=== PATIENT | male | born 1985 | race Caucasian/White ===

== ENCOUNTER 2017-02-02 01:19 | Emergency (ER) | payer BC, OTHER ==
[~2017-02-02] VITALS: Ht 182.9 cm; Wt 79.4 kg
[~2017-02-02 01:19] MED LIST: BUPR1TAB SL
--- NOTE | 2017-02-02 01:30 | NUR ---
tissue adhesive applied by Dr Velez, dressing intact, clean without bleeding.
[2017-02-02] MEDS ORDERED: ACETAMINOPHEN 325 MG TABLET ONE (01:31)
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
--- NOTE | 2017-02-02 01:35 | NUR ---
Patient discharged to home in stable condition. Written and verbal after care instructions given. Patient refused to accept exit care papers. Patient is ambulatory with steady gait. No further complaints.
[2017-02-02 01:37] VITALS: BP 120/74
[2017-02-02] MEDS ORDERED: ACETAMINOPHEN 325 MG TABLET PO ONE (02:00)
== END 2017-02-02 01:37 | disposition home or self-care (01) ==
LOC: ER 01:21
DX: S61.212A Laceration without foreign body of right middle finger without damage to nail, initial encounter (principal); F17.200 Nicotine dependence, unspecified, uncomplicated; Z90.89 Acquired absence of other organs; Z88.8 Allergy status to other drugs, medicaments and biological substances; W26.0XXA Contact with knife, initial encounter; Y93.G1 Activity, food preparation and clean up; Y92.89 Other specified places as the place of occurrence of the external cause; Y99.8 Other external cause status
CPT/HCPCS: 73140-TC; A4606; A6402; A6403; Z7610

== ENCOUNTER 2019-11-02 23:09 | Emergency (ER) | payer BC, OTHER ==
[~2019-11-02] VITALS: Ht 185.4 cm; Wt 83.9 kg
--- NOTE | 2019-11-02 23:21 | NUR ---
PT CULLEN FROM [facility], FOUND ON FLOOR PER PATIENT REPORT, TOOK 3 XANAX AND SMOKE CANNABIS EARLIER IN THE DAY, VSS TO ER BED 9
[2019-11-03 00:39] VITALS: BP 180/64
--- NOTE | 2019-11-03 00:39 | NUR ---
Patient discharged to home in stable condition. Written and verbal after care instructions given. Patient verbalizes understanding of instruction.
== END 2019-11-03 00:39 | disposition home or self-care (01) ==
LOC: ER 23:09
DX: F19.10 Other psychoactive substance abuse, uncomplicated (principal); F17.200 Nicotine dependence, unspecified, uncomplicated; Z90.89 Acquired absence of other organs; Z98.890 Other specified postprocedural states; Z88.8 Allergy status to other drugs, medicaments and biological substances; Z79.899 Other long term (current) drug therapy

== ENCOUNTER 2019-12-18 22:52 | Inpatient (IN) | payer OTHER ==
[~2019-12-18] VITALS: Ht 182.9 cm; Wt 86.2 kg
--- NOTE | 2019-12-18 23:02 | NUR ---
PATIENT CAME TO ER BED 10 BIB [facility] FROM A [facility]. PATIENT STATES, "I TOOK SOMETHING WHAT I THOUGHT WAS XANAX." STAFF AT THE FACILITY WAS PERFORMING COMPRESSIONS ON PATIENT. ACCORDING TO RESCUE AMBULANCE, PATIENT WAS GIVEN 2 DOSES OF NARCAN; 1x SPRAY AND 1x IM. PATIENT IS CURRENTLY HAVING RIGHT-SIDED CHEST PAIN. PAINFUL UPON BREATHING. PATIENT IS AAOX4. PATIENT IS BREATHING ON 15L OF NON-REBREATHER WITH EVEN RESPIRATIONS. CONNECTED TO [facility]STER.
--- NOTE | 2019-12-18 23:03 | NUR ---
SEEN AND EXAMINED BY DR. STEWART.
[2019-12-18] MEDS ORDERED: ONDANSETRON HCL/PF 4 MG/2 ML VIAL ONE (23:13)
[2019-12-18] MEDS ORDERED: KETOROLAC TROMETHAMINE INJ 30 MG/ML VIAL ONE (23:13)
[2019-12-18] MEDS ORDERED: KETOROLAC TROMETHAMINE INJ 30 MG/ML VIAL IV ONE (23:30)
[2019-12-18] MEDS ORDERED: ONDANSETRON HCL/PF - ER 4 MG/2 ML VIAL IV ONE (23:30)
--- NOTE | 2019-12-18 23:32 | NUR ---
PATIENT REFUSED BLOOD DRAW, IV, AND MEDICATIONS. NOTIFIED.
--- NOTE | 2019-12-18 23:37 | NUR ---
MD AT BEDSIDE TO SPEAK WITH PATIENT REGARDING REFUSAL.
--- NOTE | 2019-12-18 23:50 | NUR ---
BLOOD, COVID SWAB, AND CULTURES COLLECTED AND SENT TO THE LAB.
--- NOTE | 2019-12-18 23:53 | NUR ---
PATIENT REFUSED MD ROSA NOTIFIED.
[2019-12-18] MEDS ORDERED: MORPHINE SULFATE INJ 4 MG/ML DISP.SYRIN ONE (23:57)
[2019-12-18 23:59] LABS: BASOPHILS % (AUTO) 0.2 % (0.0-2.0); EOSINOPHILS % (AUTO) 0.6 % (0.0-6.0); HEMATOCRIT 53 % (39-51); HEMOGLOBIN 17.5 g/dL (13.5-17.5); LYMPHOCYTES # (AUTO) 3.2 /CMM (0.8-4.8); LYMPHOCYTES % (AUTO) 12.2 % (20.0-44.0); MEAN CORPUSCULAR HGB CONC 33 g/dl (31.0-36.0); MEAN CORPUSCULAR VOLUME 91 fL (80-96); MONOCYTES # (AUTO) 0.9 /CMM (0.1-1.30); MONOCYTES % (AUTO) 3.4 % (2.0-12.0); NEUTROPHILS # (AUTO) 21.8 /CMM (1.8-8.9); NEUTROPHILS % (AUTO) 83.6 % (43.0-81.0); PLATELET COUNT (AUTO) 218 /CMM (150-450); RED BLOOD CELL COUNT(AUTO) 5.82 MIL/uL (4.5-6.0)
[2019-12-19] VITALS (7 sets, daily range): BP systolic 103–151; BP diastolic 71–84
[2019-12-19] MEDS ORDERED: MORPHINE SULFATE INJ 2 MG/ML DISP.SYRIN IV ONE
--- NOTE | 2019-12-19 00:02 | NUR ---
XRAY AT BEDSIDE FOR XRAY
--- NOTE | 2019-12-19 01:26 | NUR ---
PATIENT REFUSED BLOOOD DRAW, LAB REQUIRED MORE BLOOD. Addendum: 12/19/19 at 0127 by SHAYAN MD NOTIFIED.
--- NOTE | 2019-12-19 02:25 | NUR ---
BED ASSIGNMENT 322-2
--- NOTE | 2019-12-19 02:45 | NUR ---
patient is ambulatory with a steady gait. able to swallow and drink water.
--- NOTE | 2019-12-19 02:59 | NUR ---
REPORT GIVEN TO DIEGO JOSHI FOR KISHA.
[2019-12-19] MEDS ORDERED: IV NS 0.9% 1,000 ML IV PRN (03:07)
--- NOTE | 2019-12-19 03:15 | NUR ---
TELE/RN ADMITTING NOTES: RECEIVED REPORT FROM LIUDMILA MG RN. PT ARRIVED TO THE UNIT VIA GURNEY WITH ACLS PROTOCOL AT 0315 IN STABLE CONDITION. AWAKE, ALERT AND ORIENTED X4. VERBALLY RESPONSIVE AND ABLE TO MAKE NEEDS KNOWN. ORIENTED TO UNIT AND STAFF. BELONGINGS LIST CHECKED AND SIGNED. NO SOB NOTED. ON 2L OF OXYGEN VIA NC. NO S/S OF ACUTE DISTRESS. COMPLAINS OF MODERATE PAIN ON THE CHEST AND STERNUM AREA. PER PT "I FEEL A LOT BETTER NOW." IV ON THE RIGHT UA #22G. AWAITING FOR ORDERS FROM DR. GREEN. TELE READING OF NSR HR ON THE 80S. PT IS AMBULATORY WITH STEADY GAIT. ABRASION ON THE LEFT FOREHEAD AND LEFT UNDEREYE. WOUND CONSULT ORDERED. PICTURES TAKEN AND DOCUMENTED. PER PT "I MUST'VE GOTTEN IT FROM A FALL. I HONESTLY DON'T REMEMBER WHAT HAPPENED." PT. STATES HE TOOK XANAX AND FENTANYL. HE'S BEEN ON A TREATMENT PROGRAM AND HAS BEEN 50 DAYS CLEAN UNTIL NOW. PER PT "I MUST'VE TAKEN TOO MUCH. I USUALLY SMOKE FENTANYL BUT THIS TIME I SNORTED IT, MAYBE MY TOLERANCE IS NOW LOW." PT HAS NO SI OR HI. SAFETY MEASURES INITIATED. BED IN LOW, LOCKED POSITION WITH SR UPX2. CALL LIGHT WITHIN REACH. WILL CONTINUE TO MONITOR ACCORDINGLY.
[2019-12-19] MEDS ORDERED: MAG HYDROX/AL HYDROX/SIMETH 30 ML UDC PO PRN (03:30)
[2019-12-19] MEDS ORDERED: ACETAMINOPHEN 650 MG/SUPP.RECT RC PRN (03:30)
[2019-12-19] MEDS ORDERED: MORPHINE SULFATE INJ 2 MG/ML DISP.SYRIN IV PRN (03:30)
[2019-12-19] MEDS ORDERED: ONDANSETRON HCL/PF 4 MG/2 ML VIAL IVP PRN (03:30)
[2019-12-19] MEDS ORDERED: MAGNESIUM HYDROXIDE 30 ML UDC PO PRN (03:30)
[2019-12-19] MEDS ORDERED: Z GUARD REMEDY 2 OZ OINT TP PRN (03:30)
[2019-12-19] MEDS ORDERED: LORAZEPAM INJ 2 MG/ML VIAL IV PRN (03:30)
[2019-12-19] MEDS ORDERED: PIPERACILLIN /TAZOBACTAM 2.25 G VIAL IV ONE (05:11)
[2019-12-19] MEDS ORDERED: ZOSYN IVPB 2.25 G in IV D5W 50ml IV ONE (05:30)
--- NOTE | 2019-12-19 05:40 | NUR ---
RT NOTE Pt refused ABG @ this time.
--- NOTE | 2019-12-19 06:40 | NUR ---
TELE/RN CLOSING NOTES: PT REMAINS RESTING IN BED. NO SIGNIFICANT CHANGES IN CONDITION. ON 2L OF OXYGEN VIA NC. NO S/S OF ACUTE DISTRESS. NO C/O PAIN AT THIS TIME. SEIZURE PRECAUTIONS ON. IV ON THE RIGHT UA #22G RUNNING NS AT 50MLS/HR. TELE READING OF NSR HR ON THE 80S. PT IS AMBULATORY WITH STEADY GAIT. WOUND CONSULT TODAY. KEPT NPO STATUS THROUGHOUT THE SHIFT. ALL NURSING NEEDS MET AND RENDERED. ALL DUE MEDS GIVEN ORDERED. SAFETY MEASURES KEPT IN PLACE. BED IN LOW, LOCKED POSITION WITH SR UPX2. CALL LIGHT WITHIN REACH. WILL ENDORSE TO DAY SHIFT FOR KISHA.
[2019-12-19] MEDS: PANTOPRAZOLE 40 MG VIAL IV SCH (08:54)
[2019-12-19] MEDS: NICOTINE PATCH (14MG) 14 MG PATCH.TD24 TD SCH (08:55)
--- NOTE | 2019-12-19 10:55 | NUR ---
rn notes patient signed AMA form and will be leaving. Removed hi IV line with no bleeding noted.
[2019-12-19] MEDS ORDERED: PIPERACILLIN /TAZOBACTAM 2.25 G in IV D5W 50 ML IV SCH (13:00)
[2019-12-19 13:31] LABS: ABG BASE EXCESS -7.3 mmol/L; ABG OXYGEN SATURATION 87.3 % (92.0-98.5); ABG PCO2 70.5 mmHg (35.0-45.0); ABG PO2 59.5 mmHg (75.0-100.0); AaDO2 349.2 mmHg; COHb 1.2 % (0.5-1.5); MetHb 0.1 % (0.0-1.5); O2Hb 86.2 % (94.0-97.0); SITE, ABG Right Brachial; VENT MODE, BG S/M 12LPM
--- NOTE | 2019-12-19 13:44 | NUR ---
rn notes patient stated that he was going to wait for his mom in his room after signing AMA paper. He was placed on NRB. 1328: Code started 1334: BS 151, 128/74 120 HR, 95% spo2, on NRB mask 1330: Team came 1335: suction done, tolerated well 1325: ABG done 1337: repeat ABG per dr breen
[2019-12-19 14:13] LABS: ABG BASE EXCESS -7.5 mmol/L; ABG OXYGEN SATURATION 93.9 % (92.0-98.5); ABG PCO2 53.9 mmHg (35.0-45.0); ABG PH 7.208 (7.350-7.450); ABG PO2 74.4 mmHg (75.0-100.0); AaDO2 584.7 mmHg; MetHb 0.2 % (0.0-1.5); O2Hb 92.8 % (94.0-97.0); SITE, ABG Right Radial; VENT MODE, BG NRB 15LPM
--- NOTE | 2019-12-19 14:20 | NUR ---
PERSONNEL MANAGER NOTES INFORMED DR. DOMINGUEZ OF PATIENT ABG RESULTS, ORDERS OBTAINED TO KEEP PATIENT ON TELE MONITORING AND MONITOR CLOSELY.
[2019-12-19] MEDS: PIPERACILLIN /TAZOBACTAM 3.375 G in IV D5W 100 ML IV SCH ×2 (14:58→20:24)
[2019-12-19] MEDS: VANCOMYCIN HCL 1.25 GM in IV D5W 260 ML IV ONE ×2 (15:00→17:33)
--- NOTE | 2019-12-19 17:13 | NUR ---
rn notes patient remains on NRB mask, flushed. a/o x2-3, intermittently falls asleep and wakes up. on tele at this time, brp and uses urinal. forehead abrasion, under eye redness. NPO at this time. MARK 22 NS @ 50 ml per hour. L ua IV line present, Mid line pending at this time. saturating well and HR has been in the 90's. Check o2 round the clock. Bed at the lowest setting, call light within reach, side rails up x2.
--- NOTE | 2019-12-19 19:10 | NUR ---
stitch burnisher opening notes received patient in bed awake verbally responsive, on 15 l non rebreather mask, tolerating well at this time, o2 sat 97%, no resp distress noted at this time, on tele monitor sr 95. npo status , iv site to left upper arm #22g intact and patent, no redness, no infiltration present, ivf running as ordered, oriented to staff and call light and kept within reach, low bed and locked, all needs attended at this time will continue to monitor.
--- NOTE | 2019-12-19 21:00 | NUR ---
furnace fitter notes patient refused x3 ordered lab draws despite education provided.
[2019-12-20 00:11] VITALS: BP 127/71
[2019-12-20 04:00] VITALS: BP 117/68
[2019-12-20] MEDS: PIPERACILLIN /TAZOBACTAM 3.375 G in IV D5W 100 ML IV SCH (04:08)
[2019-12-20 04:28] VITALS: BP 117/68
--- NOTE | 2019-12-20 06:28 | NUR ---
corner brace block machine operator closing notes patient in bed awake verbally responsive, on 15 l non rebreather mask, tolerating well at this time, o2 sat between 93-100% throughout shift, no resp distress noted at this time, on tele monitor sr 84. npo status , iv site to left upper arm #22g intact and patent abx given as ordered, no redness, no infiltration present, ivf running as ordered, refused am blood draws x 3. call light kept within reach, low bed and locked, all needs attended at this time will continue to monitor and endorse to next shift.
--- NOTE | 2019-12-20 07:20 | NUR ---
RN OPENING NOTES RECEIVED PATIENT IN BED RESTING. A/OX4, ABLE TO MAKE NEEDS KNOWN. IN STABLE CONDITION. NO SOB, ON 15LPM NRB MASK, SATING 98%. DENIED PAIN OR DISCOMFORT AT THIS TIME. IV ACCESS INTACT AND PATENT. KEPT PATIEMNT SAFE AND COMFORTABLE. BED IN LOW/LOCKED PSOTIION, SIDERAISL UPX2, HOB ELEVATED. ON CONT PULSE OX MONITORING. TELEMONIOTR READING SR 78. WILL CONT TO MONITOR ACCORDINGLY
[2019-12-20 08:00] VITALS: BP 116/67
--- NOTE | 2019-12-20 08:30 | NUR ---
pt. found off on non rebreather. pt. placed in nasal cannula @ 2 lpm o2 flow with spo2 94 - 96%. Charge nurse notified on changes. Addendum: 12/20/19 at 0832 by SANJAY MATA RT Amended: Links added.
[2019-12-20] MEDS: PANTOPRAZOLE 40 MG VIAL IV SCH (08:31)
[2019-12-20] MEDS: NICOTINE PATCH (14MG) 14 MG PATCH.TD24 TD SCH (08:32)
--- NOTE | 2019-12-20 09:31 | NUR ---
refused blood draw explained risks and benefits x 3 but still refused.
--- NOTE | 2019-12-20 09:51 | NUR ---
rn notes patient stated that he wants to leave AMA. explained risk and benefits but still wanted to leave. "i just want to leave". Patient called mother to pick him up. per patient, mother will come in an hour. will notify MD Addendum: 12/20/19 at 1050 by JACOB GROSS patient stated that he wants to leave AMA. explained RISK BUT STILL REFUSED TO LISTEN AND WANTED TO LEAVE.
--- NOTE | 2019-12-20 09:55 | NUR ---
REFUSED SKIN PHOTO
--- NOTE | 2019-12-20 10:45 | NUR ---
RN NOTES PATIENT GETTING READY TO LEAVE AGAINST MEDICAL ADVICE. ASSISTED IN PUTTING CLOTHES ON. PATIENT PULLED OUT IV ACCESS ON MARK, BLEEDING NOTED. APPLIED PRESSURE AND BLEEDING STOPPED, PUT GAUZE AND TAPE. NAME BAND REMOVED.
--- NOTE | 2019-12-20 10:48 | NUR ---
RN AMA NOTES PATIENT LEFT AGAINST MEDICAL ADVICE. EXPLAINED RISK INCLUDING BUT STILL REFUSED TO LISTEN AND STILL WANTED TO LEAVE THE HOSPITAL. MOTHER AT THE LOBBY WAITING FOR THE PATIENT. AMA FORM SIGNED. ALL BELONGINGS RETURNED, FORM SIGNED. REFUSED TO TAKE EXITCARE PAPERWORK. NAME BAND AND IV ACCESS REMOVED. DR SANDERS, CHARGE NURSE, AND TRANSIT WORKER MADE AWARE. ACCOMPANIED PATIENT TO THE PARKING LOT GOING INSIDE PATIENT'S MOTHER'S CAR BY TYREE MENDIETA AND PRIMARY NURSE.
--- NOTE | 2019-12-20 11:56 | NUR ---
Typing Element Machine Operator consult requested by Kori Contreras NP for homelessness and drugs. Patient left AMA before this SW met with the patient.
== END 2019-12-20 10:35 | disposition left against medical advice (07) | DRG 917 ==
LOC: ER 22:54 → TELE 12-19 02:55 → MED 12-19 09:01 → TELE 12-19 14:19
PROVIDERS: ADMIT Registered Nurse
DX: T40.1X1A Poisoning by heroin, accidental (unintentional), initial encounter (principal); J96.02 Acute respiratory failure with hypercapnia; J96.01 Acute respiratory failure with hypoxia; G92 Toxic encephalopathy; J69.0 Pneumonitis due to inhalation of food and vomit; F11.23 Opioid dependence with withdrawal; Y92.009 Unspecified place in unspecified non-institutional (private) residence as the place of occurrence of the external cause; Z88.8 Allergy status to other drugs, medicaments and biological substances; Z91.19 Patient's noncompliance with other medical treatment and regimen; Z90.49 Acquired absence of other specified parts of digestive tract; D72.829 Elevated white blood cell count, unspecified; F19.10 Other psychoactive substance abuse, uncomplicated; Z72.0 Tobacco use
CPT/HCPCS: 36415; 36600; 71045-TC; 80048-TC; 80076-TC; 82803-TC; 82962-TC; 83880; 84484-TC; 85025-TC; 87040-TC; 87081-TC; 93307-TC; 94799-TC; C9113; C9803-CS; G0378; J1885; J2060; J2270; J2405; J2543; J7030; J7060; U0003-CS